=== PATIENT | female | born 1930 | race Caucasian/White ===

== ENCOUNTER → 2018-02-09 | Outpatient (CLI) | payer MEDICARE ==
[~2018-02-09] MED LIST: ACET-1600 PO; ALEN70TA5 PO; CBD HEMP OIL PO; CHOL200024 PO; GABA300C10 PO; LOVA10TA PO; LUTE1CAP PO; SENN1TAB67 PO; TIMO5DRO5 EACHEYE; [UNRECOGNIZED DRUG - REMARK] INH
[2018-02-09 12:09] LABS: INTERNATIONAL NORMALIZED RATIO 0.94 (0.93-1.1); PROTHROMBIN TIME 9.8 Seconds (9.6-11.5)
== END | disposition home or self-care (01) ==
LOC: STAR 10:30
PROVIDERS: ATTEND Neurological Surgery
DX: Z01.818 Encounter for other preprocedural examination (principal); M48.062 Spinal stenosis, lumbar region with neurogenic claudication
CPT/HCPCS: 36415; 71046; 85610; 85730; 93005

== ENCOUNTER 2018-02-17 07:20 | Day surgery (SDC) | payer MEDICARE ==
[~2018-02-17] VITALS: Ht 167.6 cm; Wt 76.1 kg
[~2018-02-17 07:20] MED LIST changes: +BACITRACIN 50,000 UNIT ONE; +BUPIVACAINE/PF-EPI 0.5% 1:200K ONE; +THROMBIN 5,000 UNIT VIAL TP ONE
[2018-02-17] MEDS ORDERED: MIDAZOLAM 1 MG/ML, 2ML ONE (08:13)
[2018-02-17] MEDS ORDERED: FENTANYL PF 250 MCG/5ML ONE (08:13)
[2018-02-17] MEDS ORDERED: LACTATED RINGERS 1,000 ML IV SCH (08:20)
[2018-02-17 08:24] VITALS: BP 116/64
[2018-02-17] MEDS ORDERED: ACETAMINOPHEN 500 MG TABLET PO ONE (08:30)
[2018-02-17] MEDS ORDERED: SCOPOLAMINE PATCH, 1.5MG PATCH.TD72 TD ONE (08:30)
[2018-02-17] MEDS ORDERED: GABAPENTIN 300 MG CAPSULE PO ONE (08:30)
[2018-02-17] MEDS ORDERED: SODIUM CHLORIDE 0.9% 1,000 ML IV SCH (08:50)
[2018-02-17] MEDS ORDERED: NEOSTIGMINE 1 MG/ML, 10ML ONE (09:40)
[2018-02-17] MEDS ORDERED: PROPOFOL 10 MG/ML, 20ML ONE (09:40)
[2018-02-17] MEDS ORDERED: GLYCOPYRROLATE 0.2MG/1ML, 5ML ONE (09:40)
[2018-02-17] MEDS ORDERED: DEXAMETHASONE 4 MG/ML, 1ML ONE (09:40)
[2018-02-17] MEDS ORDERED: CEFAZOLIN 1,000 MG ONE (09:40)
[2018-02-17] MEDS ORDERED: ROCURONIUM 10 MG/ML,10ML ONE (09:40)
[2018-02-17] MEDS ORDERED: SUCCINYLCHOLINE 20 MG/ML, 10ML ONE (09:40)
[2018-02-17] MEDS ORDERED: ONDANSETRON 2MG/ML, 2ML ONE (09:40)
[2018-02-17] MEDS ORDERED: ONDANSETRON ODT 8 MG PO PRN (10:30)
[2018-02-17] MEDS ORDERED: ONDANSETRON 2MG/ML, 2ML IV PRN (10:30)
[2018-02-17] MEDS ORDERED: HYDROmorphone 1 MG/ML, 1ML IV PRN (10:30)
[2018-02-17] MEDS ORDERED: OXYcodone 5 MG/5 ML ORAL.SOL UDC PO PRN (10:30)
[2018-02-17] MEDS ORDERED: PROMETHAZINE 12.5 MG SUPP PR PRN (10:30)
[2018-02-17] MEDS ORDERED: hydrALAzine 20 MG/ML, 1ML IV PRN (10:30)
[2018-02-17] MEDS ORDERED: LABETALOL 5MG/ML, 20ML IV PRN (10:30)
[2018-02-17] MEDS ORDERED: FENTANYL PF 100 MCG/2ML ONE (11:16)
[2018-02-17] MEDS: FENTANYL PF 100 MCG/2ML IV PRN ×4 (11:17→11:32)
[2018-02-17] MEDS ORDERED: OXYcodone 5 MG/5 ML ORAL.SOL UDC ONE (11:17)
[2018-02-17] MEDS ORDERED: HYDROmorphone 2 MG/ML, 1ML ONE (11:42)
[2018-02-17] MEDS ORDERED: METHOCARBAMOL 750 MG TABLET ONE (11:42)
[2018-02-17] MEDS ORDERED: METHOCARBAMOL 750 MG TABLET PO PRN (12:00)
== END 2018-02-17 14:45 | disposition home or self-care (01) ==
LOC: OUT 07:20
PROVIDERS: ATTEND Neurological Surgery
DX: M48.061 Spinal stenosis, lumbar region without neurogenic claudication (principal); M54.16 Radiculopathy, lumbar region; G43.909 Migraine, unspecified, not intractable, without status migrainosus; F41.8 Other specified anxiety disorders; M19.90 Unspecified osteoarthritis, unspecified site; Z88.8 Allergy status to other drugs, medicaments and biological substances; Z79.899 Other long term (current) drug therapy; Z98.890 Other specified postprocedural states
CPT/HCPCS: 63047; 63048; 72100; J0330; J0690; J1100; J1170; J2250; J2405; J2704; J2710; J3010; J3490; J7030

== ENCOUNTER → 2018-04-29 | Outpatient (CLI) | payer MEDICARE ==
[~2018-04-29] MED LIST changes: -ALEN70TA5 PO; +ALEN70TA6 PO; -BACITRACIN 50,000 UNIT ONE; -BUPIVACAINE/PF-EPI 0.5% 1:200K ONE; +OMNIPAQUE 350 MG/ML, 150 ML BOTTLE ONE; -THROMBIN 5,000 UNIT VIAL TP ONE
== END | disposition home or self-care (01) ==
LOC: CFH 12:07
PROVIDERS: ATTEND Nurse Practitioner Primary Care
DX: E04.2 Nontoxic multinodular goiter (principal); D17.39 Benign lipomatous neoplasm of skin and subcutaneous tissue of other sites; R91.8 Other nonspecific abnormal finding of lung field; I70.0 Atherosclerosis of aorta; K76.89 Other specified diseases of liver; M85.88 Other specified disorders of bone density and structure, other site
CPT/HCPCS: 70491; 71260; Q9967

== ENCOUNTER → 2018-06-22 | Outpatient (CLI) | payer MEDICARE ==
[~2018-06-22] MED LIST changes: -OMNIPAQUE 350 MG/ML, 150 ML BOTTLE ONE
== END | disposition home or self-care (01) ==
LOC: CFH 10:00
PROVIDERS: ATTEND Nurse Practitioner Primary Care
DX: E04.1 Nontoxic single thyroid nodule (principal); M85.89 Other specified disorders of bone density and structure, multiple sites
CPT/HCPCS: 10005; 77080; 88172; 88173

== ENCOUNTER → 2018-09-28 | Outpatient (CLI) | payer MEDICARE | END | disposition home or self-care (01) | LOC: CFH 08:39 | PROVIDERS: ATTEND Internal Medicine | DX: R91.8 Other nonspecific abnormal finding of lung field (principal); E04.2 Nontoxic multinodular goiter | CPT/HCPCS: 71250 ==

== ENCOUNTER → 2019-06-09 | Outpatient (CLI) | payer MEDICARE | END | disposition home or self-care (01) | LOC: CFH 08:03 | PROVIDERS: ATTEND Internal Medicine | DX: R91.8 Other nonspecific abnormal finding of lung field (principal); E04.1 Nontoxic single thyroid nodule; J98.4 Other disorders of lung | CPT/HCPCS: 71250; 76536 ==

== ENCOUNTER → 2020-02-15 | Outpatient (CLI) | payer MEDICARE ==
[~2020-02-15] MED LIST changes: -ALEN70TA6 PO; +ALEN70TA66 PO; +CHOL10003 PO; +VITAMIN C GUMMIES PO
[2020-02-15 11:42] LABS: BASOPHILS % (AUTO) 1 % (0-1); EOSINOPHILS % (AUTO) 0 % (1-7); LYMPHOCYTES % (AUTO) 30 % (22-44); MEAN CORPUSCULAR HEMOGLOBIN 28.5 pg (27.0-34.8); MEAN CORPUSCULAR HGB CONC 32.1 g/dL (32.4-35.8); MEAN PLATELET VOLUME 10.3 fL (7.4-10.4); MONOCYTES % (AUTO) 8 % (2-9); NEUTROPHILS % (AUTO) 62 % (42-75); PLATELET COUNT 210 x10^3/uL (130-400); RED BLOOD COUNT 5.44 x10^6/uL (3.82-5.3); RED CELL DISTRIBUTION WIDTH 13.8 % (9.6-15.2)
[2020-02-15 11:48] LABS: MD NO
[2020-02-15 11:52] LABS: INTERNATIONAL NORMALIZED RATIO 1.02 (0.93-1.1); PROTHROMBIN TIME 10.8 Seconds (9.6-11.5)
== END | disposition home or self-care (01) ==
LOC: STAR 09:47
PROVIDERS: ATTEND Surgery
DX: Z01.812 Encounter for preprocedural laboratory examination (principal); Z20.828 Contact with and (suspected) exposure to other viral communicable diseases; R94.31 Abnormal electrocardiogram [ECG] [EKG]
CPT/HCPCS: 36415; 84432; 85025; 85610; 85730; 86800; 87635; 93005

== ENCOUNTER 2020-02-20 07:51 | Day surgery (SDC) | payer MEDICARE ==
[~2020-02-20] VITALS: Ht 167.6 cm; Wt 74.0 kg
[2020-02-20] MEDS ORDERED: CHLORHEXIDINE 15 ML UDC MM STA (08:18)
[2020-02-20] MEDS ORDERED: LACTATED RINGERS 1,000 ML IV SCH (08:18)
[2020-02-20 08:32] VITALS: BP 146/112
[2020-02-20] MEDS ORDERED: MIDAZOLAM 1 MG/ML, 2ML ONE (09:29)
[2020-02-20] MEDS ORDERED: FENTANYL PF 250 MCG/5ML ONE (09:29)
[2020-02-20] MEDS ORDERED: SUCCINYLCHOLINE 20 MG/ML, 10ML ONE (10:40)
[2020-02-20] MEDS ORDERED: GLYCOPYRROLATE 0.2MG/1ML, 5ML ONE (10:40)
[2020-02-20] MEDS ORDERED: ROCURONIUM 10MG/ML,5ML ONE (10:40)
[2020-02-20] MEDS ORDERED: NEOSTIGMINE 1 MG/ML, 10ML ONE (10:40)
[2020-02-20] MEDS ORDERED: DEXAMETHASONE 4 MG/ML, 1ML ONE (10:40)
[2020-02-20] MEDS ORDERED: ONDANSETRON 2MG/ML, 2ML ONE (10:40)
[2020-02-20] MEDS ORDERED: PROPOFOL 10 MG/ML, 20ML ONE (10:40)
[2020-02-20] MEDS ORDERED: CEFAZOLIN 1,000 MG ONE (10:40)
[2020-02-20] MEDS ORDERED: FENTANYL PF 100 MCG/2ML ONE (11:37)
[2020-02-20] MEDS ORDERED: OXYcodone 5 MG/5 ML ORAL.SOL UDC ONE (11:37)
[2020-02-20] MEDS: FENTANYL PF 100 MCG/2ML IV PRN ×2 (11:40→11:55)
[2020-02-20] MEDS ORDERED: HALOPERIDOL 5 MG/ML IV PRN (12:00)
[2020-02-20] MEDS ORDERED: LABETALOL 5MG/ML, 20ML IV PRN (12:00)
[2020-02-20] MEDS ORDERED: ALBUTEROL SULFATE 2.5 MG/3 ML NPPB PRN (12:00)
[2020-02-20] MEDS ORDERED: HYDROmorphone 2 MG/ML, 1ML IVPush PRN (12:00)
[2020-02-20] MEDS ORDERED: PROMETHAZINE 25 MG/ML, 1ML IV PRN (12:00)
[2020-02-20] MEDS ORDERED: hydrALAzine 20 MG/ML, 1ML IV PRN (12:00)
[2020-02-20] MEDS ORDERED: OXYcodone 5 MG/5 ML ORAL.SOL UDC PO PRN (12:00)
[2020-02-23] MEDS ORDERED: PROC10TA2 PO (17:00)
== END 2020-02-20 13:20 | disposition home or self-care (01) ==
LOC: OUT 07:51
PROVIDERS: ATTEND Surgery
DX: E04.2 Nontoxic multinodular goiter (principal); R41.81 Age-related cognitive decline; Z79.899 Other long term (current) drug therapy; Z87.891 Personal history of nicotine dependence; Z88.5 Allergy status to narcotic agent; Z80.8 Family history of malignant neoplasm of other organs or systems
CPT/HCPCS: 60220; 88307; C1760; J0330; J0690; J1100; J2250; J2405; J2704; J2710; J3010; J7120